=== PATIENT | female | born 1995 | race Caucasian/White ===

== ENCOUNTER 2020-08-25 11:40 | Outpatient (CLI) | payer OTHER ==
[2020-08-26 01:16] LABS: SARS-CoV-2 PCR by NAA Not Detected (NotDetected)
== END 2020-08-25 11:41 | disposition home or self-care (01) ==
LOC: CSHLAB 11:40
PROVIDERS: ATTEND Family Medicine
DX: Z20.822 Contact with and (suspected) exposure to COVID-19 (principal)
CPT/HCPCS: 87635; U0003; U0005

== ENCOUNTER 2020-08-26 04:50 | Inpatient (IN) | payer OTHER ==
[2020-08-26 05:14] VITALS: BMI 31.8
[2020-08-26 05:45] LABS: Amnisure Test RUPTURE DETECTED (No Rupture)
[2020-08-26] MEDS ORDERED: Misoprostol 200 MCG TAB PR PRN (05:58)
[2020-08-26] MEDS ORDERED: Methylergonovine 0.2 MG/ML VIAL IM PRN (05:58)
[2020-08-26] MEDS ORDERED: Carboprost 250 MCG/ML AMP IM PRN (05:58)
[2020-08-26] MEDS ORDERED: Diphenoxylate HCl/Atropine Tablet PO PRN ×2 (05:58)
[2020-08-26] MEDS ORDERED: Promethazine HCl 25 MG/ML VIAL IM PRN ×2 (05:58→15:23)
[2020-08-26] MEDS ORDERED: Butorphanol Tartrate 1 MG/ML VIAL SLOW IVP PRN (05:58)
[2020-08-26] MEDS ORDERED: Acetaminophen 500 MG TAB PO PRN (05:58)
[2020-08-26] MEDS ORDERED: Ondansetron PF 4 MG/2 ML Vial IVP PRN ×2 (05:58→15:23)
[2020-08-26] MEDS ORDERED: Ibuprofen 800 MG TAB PO PRN (05:58)
[2020-08-26] MEDS ORDERED: Lidocaine 1% (PF) 30 ML VIAL SC PRN (05:58)
[2020-08-26] MEDS ORDERED: hydrALAZINE 20 MG/ML VIAL SLOW IVP PRN (05:58)
[2020-08-26] MEDS: Lactated Ringer's 1,000 ML IV SCH (06:20)
[2020-08-26] MEDS: Misoprostol 100 MCG TAB PO SCH (06:30)
[2020-08-26 07:19] LABS: Hemoglobin 12.6 g/dL (12.0-15.5); Mean Corpuscular HGB CONC 34.1 g/dL (32.0-36.0); Mean Corpuscular Hemoglobin 31.8 pg (27.0-33.0); Mean Corpuscular Volume 93.2 fl (81.6-98.3); Mean Platelet Volume 12.4 fl (7.4-10.4); Platelet Count 176 10x3/uL (150-450); RBC Distribution Width 12.1 % (11.5-14.5); Red Blood Cell (RBC) Count 3.96 10x6/uL (3.90-5.03); White Blood Cell (WBC) Count 8.9 10x3/uL (3.5-10.5)
[2020-08-26 07:41] LABS: Hep B Surf Ag Non-Reactive S/CO (NonReactive)
[2020-08-26 07:42] LABS: Syphilis Antibody Nonreactive (Nonreactive); Syphilis Antibody Index 0.04 S/CO (<1.00 Non-Reactive)
[2020-08-26 09:19] LABS: HBSAg Index 0.19 S/CO (0-0.99)
[2020-08-26] MEDS: NS w/ Oxytocin 30 units 500 ML IV PRN (10:32)
[2020-08-26] MEDS ORDERED: Fentanyl 4 mcg/Bup 0.1% Cadd 100 ML ONE ×2 (14:49→22:19)
[2020-08-26] MEDS ORDERED: Eucerin (Mineral Oil/Petrolatum,White) 30 gm Jar TOP PRN (15:23)
[2020-08-26] MEDS ORDERED: diphenhydrAMINE 50 MG/ML VIAL IVP PRN (15:23)
[2020-08-26] MEDS ORDERED: Lactated Ringer's 500 ML IV PRN (15:23)
[2020-08-26] MEDS ORDERED: Acetaminophen 325 MG TAB PO PRN (15:23)
[2020-08-26] MEDS ORDERED: ePHEDrine 50 MG/ML VIAL SLOW IVP PRN (15:23)
[2020-08-26] MEDS ORDERED: Naloxone HCl 0.4 mg/ml Vial IVP PRN ×2 (15:23)
[2020-08-26] MEDS ORDERED: Communication Order-Pharmacy FS SCH (15:30)
[2020-08-26] MEDS: Fentanyl 4 mcg/Bupivacaine 0.1% Cassette 100 ML EPIDURAL SCH (23:00)
[2020-08-27] MEDS ORDERED: Carboprost 250 MCG/ML AMP ONE (04:06)
[2020-08-27] MEDS ORDERED: Misoprostol 200 MCG TAB ONE (04:07)
[2020-08-27] MEDS: Fentanyl 4 mcg/Bupivacaine 0.1% Cassette 100 ML EPIDURAL SCH (05:40)
[2020-08-27] MEDS: NS w/ Oxytocin 30 units 500 ML IV PRN (07:40)
[2020-08-27] MEDS: Lactated Ringer's 1,000 ML IV SCH ×2 (09:29→11:52)
[2020-08-27] MEDS: Misoprostol 100 MCG TAB PO SCH (09:31)
[2020-08-27] MEDS ORDERED: diphenhydrAMINE 25 MG CAP PO PRN (11:24)
[2020-08-27] MEDS ORDERED: HYDROcodone/Acetaminophen 5/325 mg Tablet PO PRN (11:24)
[2020-08-27] MEDS ORDERED: Lanolin Ointment 7 GM TUBE TOP PRN (11:24)
[2020-08-27] MEDS ORDERED: Ondansetron PF 4 MG/2 ML Vial IVP PRN (11:24)
[2020-08-27] MEDS ORDERED: Adacel (T-DAP) 0.5 ML SYRINGE IM ONE (11:24)
[2020-08-27] MEDS ORDERED: hydrALAZINE 20 MG/ML VIAL SLOW IVP PRN (11:24)
[2020-08-27] MEDS ORDERED: Bisacodyl 10 MG SUPP PR PRN (11:24)
[2020-08-27] MEDS ORDERED: Preparation H Ointment 28 GM TUBE PR PRN (11:24)
[2020-08-27] MEDS ORDERED: Promethazine HCl 25 MG/ML VIAL IM PRN (11:24)
[2020-08-27] MEDS ORDERED: Benzocaine-Menthol 82.5 ML CAN TOP PRN (11:24)
[2020-08-27] MEDS ORDERED: Milk Of Magnesia 30 ML UDCUP PO PRN (11:24)
[2020-08-27] MEDS ORDERED: Prenatal Vitamin 1 TAB PO SCH (11:45)
[2020-08-27] MEDS ORDERED: NS w/ Oxytocin 30 units 500 ML IVPB SCH (11:45)
[2020-08-27] MEDS ORDERED: Docusate Calcium (SURFAK) 240 MG CAP PO SCH (11:45)
[2020-08-27] MEDS: Ibuprofen 800 MG TAB PO SCH ×2 (12:34→21:45)
[2020-08-27] MEDS: Ferrous Sulfate 325 MG TAB PO SCH (12:52)
[2020-08-27] MEDS: HYDROcodone/Acetaminophen 5/325 mg Tablet PO PRN (15:03)
[2020-08-27] MEDS: Docusate Calcium (SURFAK) 240 MG CAP PO SCH (21:45)
[2020-08-27] MEDS ORDERED: Witch Hazel-Glycerin 1 EACH JAR TOP PRN (22:25)
[2020-08-28] MEDS: HYDROcodone/Acetaminophen 5/325 mg Tablet PO PRN (07:29)
[2020-08-28] MEDS: Ibuprofen 800 MG TAB PO SCH ×3 (07:31→21:43)
[2020-08-28] MEDS: Prenatal Vitamin 1 TAB PO SCH (09:35)
[2020-08-28] MEDS: Docusate Calcium (SURFAK) 240 MG CAP PO SCH ×2 (09:35→21:43)
[2020-08-28] MEDS: Ferrous Sulfate 325 MG TAB PO SCH ×2 (09:37→17:34)
[2020-08-28] MEDS ORDERED: Bupivacaine 0.25% HCL 30 ML VIAL ONE (19:49)
[2020-08-28] MEDS ORDERED: Bupivacaine PF 0.5% 30 ML VIAL ONE (19:49)
[2020-08-29] MEDS: Ibuprofen 800 MG TAB PO SCH ×2 (06:20→14:29)
[2020-08-29 08:07] VITALS: BP 97/62; TEMP 98
[2020-08-29] MEDS: Prenatal Vitamin 1 TAB PO SCH (09:53)
[2020-08-29] MEDS: Docusate Calcium (SURFAK) 240 MG CAP PO SCH (09:53)
[2020-08-29] MEDS: Ferrous Sulfate 325 MG TAB PO SCH (11:59)
== END 2020-08-29 17:00 | disposition home or self-care (01) | DRG 807 ==
LOC: CSHLD/OP 04:50 → CSHLD 06:50 → CSHPP 08-27 12:48
PROVIDERS: ADMIT Family Medicine; ATTEND Family Medicine
PROC: 3E033VJ Introduction of Other Hormone into Peripheral Vein, Percutaneous Approach (ICD-10-PCS; 2020-08-26)
PROC: 10H07YZ Insertion of Other Device into Products of Conception, Via Natural or Artificial Opening (ICD-10-PCS; 2020-08-26)
PROC: 10907ZC Drainage of Amniotic Fluid, Therapeutic from Products of Conception, Via Natural or Artificial Opening (ICD-10-PCS; 2020-08-26)
PROC: 10E0XZZ Delivery of Products of Conception, External Approach (ICD-10-PCS; principal; 2020-08-27)
PROC: 0HQ9XZZ Repair Perineum Skin, External Approach (ICD-10-PCS; 2020-08-27)
PROC: 0W8NXZZ Division of Female Perineum, External Approach (ICD-10-PCS; 2020-08-27)
DX: O42.02 Full-term premature rupture of membranes, onset of labor within 24 hours of rupture (principal); Z37.0 Single live birth; Z3A.39 39 weeks gestation of pregnancy; Z20.822 Contact with and (suspected) exposure to COVID-19; O69.81X0 Labor and delivery complicated by cord around neck, without compression, not applicable or unspecified; O70.0 First degree perineal laceration during delivery
CPT/HCPCS: 36415; 51702; 84112; 85027; 86780; 86850; 86900; 86901; 87340; 87635; 99285; J2590; S0020; U0003; U0005

== ENCOUNTER 2020-09-02 14:56 | Emergency (ER) | payer OTHER | END 2020-09-02 15:55 | disposition home or self-care (01) | LOC: CSHERS 14:56 | DX: N73.2 Unspecified parametritis and pelvic cellulitis (principal) | CPT/HCPCS: 99283 ==

== ENCOUNTER 2024-04-18 00:12 | Emergency (ER) | payer OTHER ==
[2024-04-18 00:47] LABS: Bilirubin Neg (Negative); Blood, Urine 150 (Negative); Clarity Clear (Clear); Glucose, Urine (Dipstick) Normal (Negative); Ketone, Urine Negative (Negative); Leukocyte 25 (Negative); Nitrite Negative (Negative); Protein, Urine (Dipstick) 15 mg/dl (Neg-Trace)
[2024-04-18 00:57] LABS: Pregnancy Test - Urine (BHCG) Negative (Negative); Pregu Control Background? CLEAR/WHITE (CLR/WHITE); Pregu Control Bar Appear? YES (CONTROL BAR)
[2024-04-18 01:17] LABS: CAUTI Indications for Culture Dysuria,urgency,freq; RBC/HPF 21-50 HPF (0-3)
[2024-04-18 01:18] LABS: Squamous Epithelial 0-3 HPF (0-3)
[2024-04-18 01:19] LABS: Bacteria/HPF 2+ HPF (None Seen); Mucous/LPF 2+ LPF (<2+)
[2024-04-18 01:20] LABS: Urine Culture Reflex No No
[2024-04-18] MEDS ORDERED: Ketorolac Tromethamine 30 MG (1 mL) VIAL ONE (01:39)
[2024-04-18] MEDS ORDERED: Ondansetron ODT 4 MG TAB ONE (01:39)
== END 2024-04-18 02:43 | disposition home or self-care (01) ==
LOC: CSHERS 00:12
DX: N13.2 Hydronephrosis with renal and ureteral calculous obstruction (principal)
CPT/HCPCS: 74176; 81001; 81025; 96372; J1885; Q0162